=== PATIENT | female | born 1975 | race Caucasian/White ===

== ENCOUNTER 2024-12-04 22:05 | Observation (INO) | payer BC ==
[2024-12-04] MEDS: LORazepam 2 MG/ML INJ IV STA (22:21)
[2024-12-04] MEDS: SODIUM CHLORIDE 0.9% 1,000 ML IV STA (22:21)
[2024-12-04 22:23] LABS: Basophils % (A) 1 %; Eosinophils # (A) 0.2 k/uL (0-0.7); Eosinophils % (A) 3 %; HCT 37.6 % (34.0-46.0); HGB 12.6 gm/dL (11.4-16.0); Lymphocytes # (A) 2.4 k/uL (1.0-4.8); Lymphocytes % (A) 34 %; MCHC 33.4 g/dL (31.0-37.0); MCV 92.8 fL (80.0-100.0); Mean Platelet Volume 7.4; Monocytes # (A) 0.4 k/uL (0-1.0); Monocytes % (A) 5 %; Neutrophils # (A) 3.7 k/uL (1.3-7.7); Neutrophils % (A) 54 %; Platelet Count 388 k/uL (150-450); RBC 4.05 m/uL (3.80-5.40); RDW 12.6 % (11.5-15.5); WBC 6.9 k/uL (3.8-10.6)
--- NOTE | 2024-12-04 22:31 | ED ---
General Adult HPI - General Chief complaint: Chest Pain Stated complaint: Chest Pain Time Seen by Provider: 12/04/24 22:13 Source: patient, EMS, RN notes reviewed, old records reviewed Mode of arrival: EMS Limitations: no limitations - History of Present Illness Initial comments: Patient is a 49-year-old female presents emergency department complaint of chest pain. States it started approximately an hour prior to arrival. Has no cardiac history. Does have family history of cardiac issues at older age. States that started suddenly while she was sitting. Endorses substernal and left-sided chest pain that radiates to the left shoulder into the left jaw. Patient states the pain comes and goes and currently a 7 out of 10. Denies any diaphoretic episodes. Denies nausea or vomiting. Does have a history of anxiety and panic attacks. States that she seems like every time her heart rate increases symptoms return. Unknown if this is a panic attack or cardiac in nature.No known palliative or provocative factors for the chest pain. Received 324 mg of aspirin prior to arrival.Patient states this has happened previously many years ago and she had a full cardiac workup with no clear etiology for symptoms other than anxiety panic attack. - Related Data Allergies Allergy/AdvReac Type Severity Reaction Status Date / Time fluconazole Allergy Swelling Verified 12/04/24 22:15 codeine AdvReac Swelling Verified 12/04/24 22:15 Review of Systems ROS Statement: Those systems with pertinent positive or pertinent negative responses have been documented in the HPI. Review of Systems: CONST: Denies fever EYES: Denies blurry vision ENT: Denies nasal congestion C/V: Endorses chest pain RESP: Denies shortness of breath GI: Denies abdominal pain : Denies dysuria SKIN: Denies rash. MSK: Denies joint pain. NEURO: Denies headache ROS Other: All systems not noted in ROS Statement are negative. Past Medical History Past Medical History: No Reported History History of Any Multi-Drug Resistant Organisms: None Reported Past Psychological History: Anxiety Smoking Status: Former smoker Past Alcohol Use History: Occasional, Rare Past Drug Use History: Marijuana General Exam - General Exam Comments Initial Comments: General: Extremely anxious. HEAD: Normal with no signs of head trauma. EYES: PERRLA, EOMI, conjunctiva normal, no discharge. ENT: Hearing grossly intact, normal oropharynx. RESPIRATORY: Clear breath sounds bilaterally. No wheezes, rales, or rhonchi. C/V: Tachycardic with regular rhythm. S1 and S2 auscultated, no edema, tawanna pheral pulses 2+ and intact throughout ABD: Abd is soft, nontender, nondistended EXT: Normal range of motion, no obvious deformity SKIN: No rashes or lesions observed on exposed skin. NEURO: Alert and oriented x 4. Limitations: no limitations Course Vital Signs 12/04/24 12/04/24 12/04/24 22:07 22:29 23:17 Temperature 98.4 F Pulse Rate 135 H 104 H 104 H Respiratory 18 18 18 Rate Blood Pressure 147/98 133/92 125/85 O2 Sat by Pulse 98 98 97 Oximetry 12/05/24 01:10 Temperature Pulse Rate 89 Respiratory 18 Rate Blood Pressure 106/74 O2 Sat by Pulse 97 Oximetry Medical Decision Making - Medical Decision Making Was pt. sent in by a medical professional or institution (, PA, OCCUPATIONAL HEALTH PHYSICIAN, urgent care, hospital, or usp...) When possible be specific @ -No Did you speak to anyone other than the patient for history (EMS, parent, family, police, friend...)? What history was obtained from this source @ -No Did you review nursing and triage notes (agree or disagree)? Why? @ -I reviewed and agree with nursing and triage notes Were old charts reviewed (outside hosp., previous admission, EMS record, old EKG, old radiological studies, urgent care reports/EKG's, usp records)? Report findings @ -No old charts were reviewed Differential Diagnosis (chest pain, altered mental status, abdominal pain women, abdominal pain men, vaginal bleeding, weakness, fever, dyspnea, syncope, headach e, dizziness, GI bleed, back pain, seizure, CVA, palpatations, mental health, musculoskeletal)? @ -Differential Chest Pain: Stable Angina, Unstable Angina, STEMI, NSTEMI Aortic Dissection, Pneumothorax, Musculoskeletal, Esophageal Spasm GERD, Cholecystitis, Pancreatitis, Zoster, this is not meant to be an all-inclusive list. EKG interpreted by me (3pts min.). @ -As above X-rays interpreted by me (1pt min.). @ -X-ray reveals no obvious acute cardiopulmonary process. CT interpreted by me (1pt min.). @ -None done U/S interpreted by me (1pt. min.). @ -None done What testing was considered but not performed or refused? (CT, X-rays, U/S, labs)? Why? @ -None What meds were considered but not given or refused? Why? @ -None Did you discuss the management of the patient with other professionals (professionals i.e. , PA, OCCUPATIONAL HEALTH PHYSICIAN, lab, RT, psych nurse, social service assistant, sheet writer, teacher, chief financial officer, case maker)? Give summary @ -I spoke with the admitting provider, Celine of [facility] who accepted the admission. Was smoking cessation discussed for >3mins.? @ -No Was critical care preformed (if so, how long)? @ -No Were there social determinants of health that impacted care today? How? (Homelessness, low income, unemployed, alcoholism, drug addiction, transportation, low edu. Level, literacy, decrease access to med. care, [facility], rehab)? @ -No Was there de-escalation of care discussed even if they declined (Discuss DNR or withdrawal of care, Hospice)? DNR status @ -No What co-morbidities impacted this encounter? (DM, HTN, Smoking, COPD, CAD, Cancer, CVA, ARF, Chemo, Hep., AIDS, mental health diagnosis, sleep apnea, morbid obesity)? @ -Anxiety, panic attacks Was patient admitted / discharged? Hospital course, mention meds given and route, prescriptions, significant lab abnormalities, going to OR and other pertinent info. @ -Patient presents emergency department with chest pain. Does have a history of anxiety and panic attacks as well and this could be a factor in her current symptoms. However we will obtain cardiac workup. She already received 3 2024 mg of aspirin. We will provide her with a 1 L fluid bolus. We discussed nitroglycerin tablets and asked versus Ativan, and patient would like to try Ativan prior to any nitro administered. Therefore patient will be given a dose of IV Ativan and reassessed. She was in agreement this plan. Vitals currently remarkable for sinus tachycardia but otherwise within acceptable limits. EKG shows no signs of acute ischemia. Shows sinus tachycardia. No prior EKG for comparison.Repeat EKG reveals no obvious dynamic changes. Ativan improved patient's anxiety as well as heart rate. States she is still having some of the same pain. We will attempt nitro tablets at this time and she was in agreement this plan. Patient is chest pain did not respond to nitroglycerin. Her discomfort seems to be jumping around. Sometimes it is located in the left chest, sometimes in left shoulder, sometimes in the left neck. Is not consistent, waxes and wanes, with no known palliative or provocative factors. Currently states it is primarily in the left shoulder. Patient's workup including troponin is unremarkable. Tr oponin is undetectable. Repeat EKG showed no signs of acute ischemia. Chest x- ray unremarkable. I discussed results with the patient. We will attempt morphine and Toradol for the pain but I do recommend admission for cardiac evaluation. She was in agreement this plan. She is resting more comfortably at this time and still appears anxious.Morphine improved the patient's symptoms. I spoke with the admitting provider, Celine of [facility] who accepted the admission. Cardiology consulted. Echo ordered. Will trend the troponin. Undiagnosed new problem with uncertain prognosis? @ -No Drug Therapy requiring intensive monitoring for toxicity (Heparin, Nitro, Insulin, Cardizem)? @ -No Were any procedures done? @ -No Diagnosis/symptom? @ -Chest pain, anxiety Acute, or Chronic, or Acute on Chronic? @ -Acute Uncomplicated (without systemic symptoms) or Complicated (systemic symptoms)? @ -Complicated Side effects of treatment? @ -None Exacerbation, Progression, or Severe Exacerbation] @ -No Poses a threat to life or bodily function? @ -Possibly, yes - Lab Data Result diagrams: 12/04/24 22:11 12/04/24 22:11 Lab Results 12/04/24 12/04/24 12/04/24 Range/Units 22:11 22:11 22:11 WBC 6.9 (3.8-10.6) k/uL RBC 4.05 (3.80-5.40) m/uL Hgb 12.6 (11.4-16.0) gm/dL Hct 37.6 (34.0-46.0) % MCV 92.8 (80.0-100.0) fL MCH 31.0 (25.0-35.0) pg MCHC 33.4 (31.0-37.0) g/dL RDW 12.6 (11.5-15.5) % Plt Count 388 (150-450) k/uL MPV 7.4 Neutrophils % 54 % Lymphocytes % 34 % Monocytes % 5 % Eosinophils % 3 % Basophils % 1 % Neutrophils # 3.7 (1.3-7.7) k/uL Lymphocytes # 2.4 (1.0-4.8) k/uL Monocytes # 0.4 (0-1.0) k/uL Eosinophils # 0.2 (0-0.7) k/uL Basophils # 0.0 (0-0.2) k/uL PT 10.5 (10.0-12.5) sec INR 0.9 (<1.2) APTT 24.2 (22.0-30.0) sec Sodium 139 (137-145) mmol/L Potassium 3.5 (3.5-5.1) mmol/L Chloride 107 (98-107) mmol/L Carbon Dioxide 22 (22-30) mmol/L Anion Gap 10 mmol/L BUN 19 H (7-17) mg/dL Creatinine 0.61 (0.52-1.04) mg/dL Est GFR (CKD-EPI)AfAm >90 (>60 ml/min/1.73 sqM) Est GFR (CKD-EPI)NonAf >90 (>60 ml/min/1.73 sqM) Glucose 131 H (74-99) mg/dL Calcium 9.8 (8.4-10.2) mg/dL Magnesium 2.0 (1.6-2.3) mg/dL Total Bilirubin 0.3 (0.2-1.3) mg/dL AST 15 (14-36) U/L ALT 13 (4-34) U/L Alkaline Phosphatase 51 (38-126) U/L Troponin I (0.000-0.034) ng/mL Total Protein 7.0 (6.3-8.2) g/dL Albumin 4.6 (3.5-5.0) g/dL 12/04/24 Range/Units 22:11 WBC (3.8-10.6) k/uL RBC (3.80-5.40) m/uL Hgb (11.4-16.0) gm/dL Hct (34.0-46.0) % MCV (80.0-100.0) fL MCH (25.0-35.0) pg MCHC (31.0-37.0) g/dL RDW (11.5-15.5) % Plt Count (150-450) k/uL MPV Neutrophils % % Lymphocytes % % Monocytes % % Eosinophils % % Basophils % % Neutrophils # (1.3-7.7) k/uL Lymphocytes # (1.0-4.8) k/uL Monocytes # (0-1.0) k/uL Eosinophils # (0-0.7) k/uL Basophils # (0-0.2) k/uL PT (10.0-12.5) sec INR (<1.2) APTT (22.0-30.0) sec Sodium (137-145) mmol/L Potassium (3.5-5.1) mmol/L Chloride (98-107) mmol/L Carbon Dioxide (22-30) mmol/L Anion Gap mmol/L BUN (7-17) mg/dL Creatinine (0.52-1.04) mg/dL Est GFR (CKD-EPI)AfAm (>60 ml/min/1.73 sqM) Est GFR (CKD-EPI)NonAf (>60 ml/min/1.73 sqM) Glucose (74-99) mg/dL Calcium (8.4-10.2) mg/dL Magnesium (1.6-2.3) mg/dL Total Bilirubin (0.2-1.3) mg/dL AST (14-36) U/L ALT (4-34) U/L Alkaline Phosphatase (38-126) U/L Troponin I <0.012 (0.000-0.034) ng/mL Total Protein (6.3-8.2) g/dL Albumin (3.5-5.0) g/dL - EKG Data -: EKG Interpreted by Me EKG Comments: 12-lead Electrocardiogram Interpretation Note EKG was reviewed and interpreted by myself. 12-lead ECG performed at 2209 is interpreted by me as revealing tachycardia at a rate of 129 beats per minute. [place] is normal. TN interval is 168 ms, QRS duration is 100 ms, QTc is 410 ms.. There were no ST or T wave abnormalities to suggest myocardial ischemia or injury. R wave progression across the precordium was satisfactory. By my interpretation this EKG is non-diagnostic for acute ischemia. 12-lead Electrocardiogram Interpretation Note EKG was reviewed and interpreted by myself. 12-lead ECG performed at 2240 is interpreted by me as revealing tachycardia at a rate of 105 beats per minute. [place] is normal. TN interval is 160 ms, QRS durations 106 ms, QTc is 400 ms.. There were no ST or T wave abnormalities to suggest myocardial ischemia or i njury. R wave progression across the precordium was satisfactory. By my interpretation this EKG is non-diagnostic for acute ischemia. No dynamic changes when compared with EKG from earlier this evening. 12-lead Electrocardiogram Interpretation Note EKG was reviewed and interpreted by myself. 12-lead ECG performed at 2359 is interpreted by me as revealing normal sinus rhythm at a rate of 94 beats per minute. [place] is normal. TN interval is 170 ms, QRS durations 96 ms, QTc is 395 ms.. There were no ST or T wave abnormalities to suggest myocardial ischemia or injury. R wave progression across the precordium was satisfactory. By my interpretation this EKG is non-diagnostic for acute ischemia. No dynamic changes when compared with previous EKGs from today. Disposition Clinical Impression: Chest pain, Anxiety Disposition: ADMITTED IP TO THIS HOSP Condition: Stable Time of Disposition: 23:25
[2024-12-04 22:32] LABS: INR 0.9 (<1.2); Partial Thromboplastin Time 24.2 sec (22.0-30.0); Prothrombin Time 10.5 sec (10.0-12.5)
[2024-12-04 22:39] LABS: ALT 13 U/L (4-34); AST 15 U/L (14-36); African American GFR (CKD) >90 (>60 ml/min/1.73 sqM); Albumin 4.6 g/dL (3.5-5.0); Alkaline Phosphatase 51 U/L (38-126); Anion Gap 10 mmol/L; Blood Urea Nitrogen 19 mg/dL (7-17); Calcium 9.8 mg/dL (8.4-10.2); Carbon Dioxide 22 mmol/L (22-30); Chloride 107 mmol/L (98-107); Glucose 131 mg/dL (74-99); Non-African American GFR(CKD) >90 (>60 ml/min/1.73 sqM); Potassium 3.5 mmol/L (3.5-5.1); Sodium 139 mmol/L (137-145); Total Bilirubin 0.3 mg/dL (0.2-1.3)
[2024-12-04] MEDS: NITROGLYCERIN SL TABS 0.4 MG TAB SUBLINGUAL STA ×2 (22:40→23:19)
[2024-12-04] MEDS ORDERED: ONDANSETRON 4 MG/2 ML VIAL IVP PRN (23:39)
[2024-12-04] MEDS ORDERED: ACETAMINOPHEN TAB 325 MG TAB PO PRN (23:39)
[2024-12-04] MEDS ORDERED: NALOXONE 0.4 MG/ML 1 ML VIAL IV PRN (23:39)
[2024-12-04] MEDS ORDERED: MORPHINE SULFATE 2 MG/ML SYRINGE IVP PRN (23:39)
[2024-12-04] MEDS: KETOROLAC 15 MG/ML 1 ML VIAL IVP STA (23:46)
[2024-12-04] MEDS: MORPHINE SULFATE 2 MG/ML SYRINGE IVP STA (23:47)
[2024-12-04] MEDS: SODIUM CHLORIDE 0.9% 1,000 ML IV SCH (23:48)
[2024-12-05] MEDS: HEPARIN SODIUM,PORCINE 5,000 UNIT/ML 1 ML VIAL SQ SCH (00:03)
--- NOTE | 2024-12-05 00:07 | XR ---
EXAM: XR Chest, 2 Views CLINICAL HISTORY: ITS.REASON XR Reason: Chest Pain TECHNIQUE: Frontal and lateral views of the chest. COMPARISON: None FINDINGS: Hardware: None. Lungs/pleura: Normal. No focal consolidation. No pleural effusion or pneumothorax. Heart/mediastinum: Normal. No cardiomegaly. Soft tissues: Unremarkable. Bones: No acute fracture. Upper abdomen: Normal. IMPRESSION: No acute disease identified.
[2024-12-05] MEDS: MORPHINE SULFATE 4 MG/ML SYRINGE IVP STA (01:19)
[2024-12-05 04:32] LABS: Basophils % (A) 0 %; Eosinophils # (A) 0.1 k/uL (0-0.7); Eosinophils % (A) 2 %; HGB 11.3 gm/dL (11.4-16.0); Lymphocytes # (A) 1.4 k/uL (1.0-4.8); Lymphocytes % (A) 28 %; MCH 31.3 pg (25.0-35.0); MCHC 33.3 g/dL (31.0-37.0); MCV 94.1 fL (80.0-100.0); Mean Platelet Volume 8.1; Monocytes # (A) 0.3 k/uL (0-1.0); Monocytes % (A) 5 %; Neutrophils # (A) 3.2 k/uL (1.3-7.7); Neutrophils % (A) 62 %; Platelet Count 322 k/uL (150-450); RBC 3.61 m/uL (3.80-5.40); RDW 12.6 % (11.5-15.5); WBC 5.1 k/uL (3.8-10.6)
[2024-12-05 05:38] LABS: ALT 11 U/L (4-34); AST 12 U/L (14-36); African American GFR (CKD) >90 (>60 ml/min/1.73 sqM); Albumin 3.5 g/dL (3.5-5.0); Alkaline Phosphatase 42 U/L (38-126); Anion Gap 6 mmol/L; Blood Urea Nitrogen 18 mg/dL (7-17); Calcium 8.4 mg/dL (8.4-10.2); Carbon Dioxide 22 mmol/L (22-30); Chloride 111 mmol/L (98-107); Glucose 98 mg/dL (74-99); Non-African American GFR(CKD) >90 (>60 ml/min/1.73 sqM); Potassium 4.3 mmol/L (3.5-5.1); Sodium 139 mmol/L (137-145); Total Bilirubin 0.3 mg/dL (0.2-1.3); Total Protein 5.6 g/dL (6.3-8.2)
[2024-12-05] MEDS: MORPHINE SULFATE 4 MG/ML SYRINGE IVP PRN (06:36)
[2024-12-05] MEDS ORDERED: HYDROcodone/APAP 10-325MG 1 EACH TAB PO PRN (09:39)
[2024-12-05] MEDS: PANTOPRAZOLE 40 MG TABLET PO SCH (10:14)
--- NOTE | 2024-12-05 10:37 | P.CRDCN ---
History of Present Illness Consult date: 12/05/24 Consult reason: chest pain History of present illness: This is a 49-year-old female with no significant past medical history. We have been asked to evaluate the patient for chest pain. Patient states that she was watching a movie last evening and developed left shoulder pain and that kept going and seems to be getting worse and then her heart started racing. She initially ignored it and thought her symptoms would go away. The pain in her shoulder was then going from the posterior shoulder to the anterior and up into the left side of her neck and jaw. Her heart rate was 140 to 150 bpm. She checked her blood pressure at home and it was 165/110. She states she normally has a very good blood pressure. She denies alcohol use, smoking, vaping, caffeine use. She denies any recent infectious process. Patient does give history that when she was in 2014 she developed palpitations and PVCs. She did have a workup at that time that included an echocardiogram which was normal. She states she normally does have occasional PVCs. She also had a workup in 2011 which time she presented to [facility] with a panic attack and le ft arm pain. She had a limited workup at that time according to the patient but everything was negative. Blood pressure 103/70, heart rate 82, pulse ox 97% on room air. Patient is seen today in the emergency center waiting for a bed on the observation unit. Patient is status post IV morphine x 2, Ativan, Toradol and Nitrostat. Discussed plan for stress test and patient states she did not sleep well last night but she will give a stress test a try. -EKG: #1 sinus tachycardia 129 bpm, nonspecific changes, #2 sinus tachycardia 105 bpm, #3 sinus rhythm 94 bpm -Chest x-ray: No acute process -Laboratory studies: Hemoglobin 11.3. Sodium 139, potassium 4.3, BUN 18 creatinine 0.51. Troponin negative x 3. -Home cardiac medications: None Review Of Systems: At the time of my exam: CONSTITUTIONAL: Denies fever or chills. HEENT: Denies blurred vision, vision changes, or eye pain. Denies hemoptysis CARDIOVASCULAR: Denies chest pain. Denies orthopnea. Denies PND. Denies palpitations RESPIRATORY: Denies shortness of breath. GASTROINTESTINAL: Denies abdominal pain. Denies nausea or vomiting. HEMATOLOGIC: Denies bleeding disorders. GENITOURINARY: Denies any blood in urine. SKIN: Denies puritis. Denies rash. Physical examination: Gen: This is a 49-year-old female in no acute distress VS: reviewed HEENT: Head is atraumatic, normocephalic. Pupils equal, round. Sclerae is anicteric. NECK: Supple. No JVD. LUNGS: Clear to auscultation. No wheezes or rhonchi. No intercostal retraction s. HEART: Regular rate and rhythm. No murmur. ABDOMEN: Soft No tenderness. EXTREMITIES: No pedal edema. No calf tenderness. NEUROLOGICAL: Patient is awake, alert and oriented x3. Assessment: Atypical chest pain, acute coronary syndrome ruled out High blood pressure reading Plan: Schedule patient for stress echocardiogram today Obtain 2-D echocardiogram and Doppler study to assess cardiac structure and function If stress test is unremarkable, patient is cleared for discharge from cardiology perspective and may follow-up in the office with Dr. Corona in 1 to 2 weeks. Thank you kindly for this consultation. Nurse practitioner note has been reviewed, I agree with documented findings and plan of care. Patient was seen and examined. Past Medical History Past Medical History: No Reported History History of Any Multi-Drug Resistant Organisms: None Reported Past Psychological History: Anxiety Smoking Status: Former smoker Past Alcohol Use History: Occasional, Rare Past Drug Use History: Marijuana Medications and Allergies Home Medications Medication Instructions Recorded Confirmed Type HYDROcodone/APAP 10-325MG [[place] 1 tab PO Q6HR PRN 12/05/24 12/05/24 History 10-325] Pantoprazole [Protonix] 40 mg PO DAILY PRN 12/05/24 12/05/24 History Allergies Allergy/AdvReac Type Severity Reaction Status Date / Time codeine Allergy Swelling Verified 12/05/24 07:04 fluconazole Allergy Swelling Verified 12/05/24 07:04 Physical Exam Vitals: Vital Signs Temp Pulse Resp BP Pulse Ox 12/05/24 08:02 98.0 F 82 17 103/70 97 12/05/24 06:28 78 18 120/82 99 12/05/24 05:58 68 16 111/65 97 12/05/24 03:30 77 16 107/72 96 12/05/24 02:34 85 16 109/62 86 L 12/05/24 01:10 89 18 106/74 97 12/04/24 23:17 104 H 18 125/85 97 12/04/24 22:29 104 H 18 133/92 98 12/04/24 22:07 98.4 F 135 H 18 147/98 98 Intake and Output 12/04/24 12/05/24 12/05/24 22:59 06:59 14:59 Other: Weight 56.699 kg Results 12/05/24 03:55 12/05/24 03:55 Cardiac Enzymes 12/04/24 12/04/24 12/05/24 Range/Units 22:11 22:11 00:08 AST 15 (14-36) U/L Troponin I <0.012 <0.012 (0.000-0.034) ng/mL 12/05/24 12/05/24 Range/Units 03:55 03:55 AST 12 L (14-36) U/L Troponin I <0.012 (0.000-0.034) ng/mL Coagulation 12/04/24 Range/Units 22:11 PT 10.5 (10.0-12.5) sec APTT 24.2 (22.0-30.0) sec CBC 12/04/24 12/05/24 Range/Units 22:11 03:55 WBC 6.9 5.1 (3.8-10.6) k/uL RBC 4.05 3.61 L (3.80-5.40) m/uL Hgb 12.6 11.3 L (11.4-16.0) gm/dL Hct 37.6 34.0 (34.0-46.0) % Plt Count 388 322 (150-450) k/uL Comprehensive Metabolic Panel 12/04/24 12/05/24 Range/Units 22:11 03:55 Sodium 139 139 (137-145) mmol/L Potassium 3.5 4.3 (3.5-5.1) mmol/L Chloride 107 111 H (98-107) mmol/L Carbon Dioxide 22 22 (22-30) mmol/L BUN 19 H 18 H (7-17) mg/dL Creatinine 0.61 0.51 L (0.52-1.04) mg/dL Glucose 131 H 98 (74-99) mg/dL Calcium 9.8 8.4 (8.4-10.2) mg/dL AST 15 12 L (14-36) U/L ALT 13 11 (4-34) U/L Alkaline Phosphatase 51 42 (38-126) U/L Total Protein 7.0 5.6 L (6.3-8.2) g/dL Albumin 4.6 3.5 (3.5-5.0) g/dL Current Medications Generic Name Dose Route Start Last Admin Trade Name Freq PRN Reason Stop Dose Admin Acetaminophen 650 mg 12/04/24 23:39 Acetaminophen Tab 325 Mg Tab PO Q6HR PRN Mild Pain or Fever > 100.5 Heparin Sodium (Porcine) 5,000 unit 12/05/24 00:00 12/05/24 00:03 Heparin Sodium,Porcine 5,000 Unit/Ml 1 Ml Vial SQ Not Given Q8HR MARCO Sodium Chloride 1,000 mls @ 75 mls/hr 12/04/24 23:45 12/04/24 23:48 Saline 0.9% IV 75 mls/hr .[id number] MARCO Administration Morphine Sulfate 4 mg 12/05/24 01:16 12/05/24 06:36 Morphine Sulfate 4 Mg/Ml Syringe IVP 4 mg Q4HR PRN Administration Pain Naloxone HCl 0.2 mg 12/04/24 23:39 Naloxone 0.4 Mg/Ml 1 Ml Vial IV Q2M PRN Opioid Reversal Ondansetron HCl 4 mg 12/04/24 23:39 Ondansetron 4 Mg/2 Ml Vial IVP Q8HR PRN Nausea And Vomiting Intake and Output 12/04/24 12/05/24 12/05/24 22:59 06:59 14:59 Other: Weight 56.699 kg 12/05/24 03:55 12/05/24 03:55
--- NOTE | 2024-12-05 11:55 | P.HPIM ---
History of Present Illness H&P Date: 12/05/24 This is a 49-year-old female with medical history of thoracic outlet syndrome/TMJ/herniated disks presents to the ER with complaints of left shoulder pain with radiation into the chest, jaw and left arm. Patient states that the pain began yesterday evening while watching a movie she was sitting on the couch when the pain came on it was noted to be sharp burning like sensation in the posterior scapula began to radiate into the anterior chest wall left jaw and down into the left arm. She noticed her heart rate to be racing at that time also. She thought may be symptoms were related to the thoracic outlet syndrome. However the pain kept worsening. Patient was concerned states that she checked her heart rate and it was elevated in the 140s to 150s. BP was 165/110. Patient was brought to the hospital by EMS. was given sublingual nitro and IV morphine without improvement in her symptoms. Was also given IV ativan, and toradol. She reports no associated shortness of breath diaphoresis dizziness or lightheadedness. No recent febrile illness no cough. Denies any abdominal pain. Patient reports no alcohol illicit substances and is a non-smoker. She is maintained on [place] as needed for history of for herniated disks in her back. Patient is still reporting chest discomfort at this time and also in the posterior back. Nothing is reproducible. She has full range of motion to the left arm, no focal tenderness along the cervical spine. Suspicion is low for any type of cervical radiculopathy, although not entirely ruled out. Patient was admitted to the hospital with cardiac consultation. Initial EKG reveals sinus tachycardia hear rate of 129. No specific ST or T wave changes noted. Chest xray negative for acute disease. Blood work is essentially unremarkable, Glucose 131 on admission; BUN of 19, creatinine of 0.61. AST/ALT and Alk phos normal. Troponin levels have been negative x 3. Patient will be going for stress echo today. REVIEW OF SYSTEMS: CONSTITUTIONAL: No fever, no malaise, no fatigue. HEENT: No recent visual problems or hearing problems. Denied any sore throat. CARDIOVASCULAR: Reports chest pain, orthopnea, PND, no palpitations, no syncope. PULMONARY: No shortness of breath, no cough, no hemoptysis. GASTROINTESTINAL: No diarrhea, no nausea, no vomiting, no abdominal pain. NEUROLOGICAL: No headaches, no weakness, no numbness. HEMATOLOGICAL: Denies any bleeding or petechiae. GENITOURINARY: Denies any burning micturition, frequency, or urgency. MUSCULOSKELETAL/RHEUMATOLOGICAL: Denies any joint pain, swelling, or any muscle pain. ENDOCRINE: Denies any polyuria or polydipsia. The rest of the 14-point review of systems is negative. PHYSICAL EXAMINATION: GENERAL: The patient is alert and oriented x3, not in any acute distress. Well developed, well nourished. HEENT: Pupils are round and equally reacting to light. EOMI. No scleral icterus. No conjunctival pallor. Normocephalic, atraumatic. No pharyngeal erythema. No thyromegaly. CARDIOVASCULAR: S1 and S2 present. No murmurs, rubs, or gallops. PULMONARY: Chest is clear to auscultation, no wheezing or crackles. ABDOMEN: Soft, nontender, nondistended, normoactive bowel sounds. No palpable organomegaly. MUSCULOSKELETAL: No joint swelling or deformity. EXTREMITIES: No cyanosis, clubbing, or pedal edema. NEUROLOGICAL: Gross neurological examination did not reveal any focal deficits. SKIN: No rashes. Assessment and Plan Acute chest pain, atypical rule out ACS patient will be going for cardiac stress testing today Sinus tachycardia and elevated blood pressures Hx of thoracic outlet syndrome Hx of TMJ Hx of herniated discs in back maintained on norco as needed under the care of her PCP GI prophylaxis on protonix DVT prophylaxis on subcu heparin Anxiety Former smoker Full Code Plan [facility] has evaluated the patient Scheduled to undergo stress echo today and can discharge home afterwards if negative Monitor electrolytes and renal function Continue cardiac telemetry. The impression and plan of care has been dictated by Rhonda Alejandra, Nurse Practitioner as directed. Dr. Olvin MD I have performed a history and physical examination and medical decision making of this patient, discussed the same with the dictator, and agree with the dictators assessment and plan as written, documented as a scribe. Based on total visit time, I have performed more than 50% of this visit. Past Medical History Past Medical History: No Reported History History of Any Multi-Drug Resistant Organisms: None Reported Past Psychological History: Anxiety Smoking Status: Former smoker Past Alcohol Use History: Occasional, Rare Past Drug Use History: Marijuana Medications and Allergies Home Medications Medication Instructions Recorded Confirmed Type HYDROcodone/APAP 10-325MG [[place] 1 tab PO Q6HR PRN 12/05/24 12/05/24 History 10-325] Pantoprazole [Protonix] 40 mg PO DAILY PRN 12/05/24 12/05/24 History Allergies Allergy/AdvReac Type Severity Reaction Status Date / Time codeine Allergy Swelling Verified 12/05/24 07:04 fluconazole Allergy Swelling Verified 12/05/24 07:04 Physical Exam Vitals: Vital Signs Temp Pulse Resp BP Pulse Ox 12/05/24 08:02 98.0 F 82 17 103/70 97 12/05/24 06:28 78 18 120/82 99 12/05/24 05:58 68 16 111/65 97 12/05/24 03:30 77 16 107/72 96 12/05/24 02:34 85 16 109/62 86 L 12/05/24 01:10 89 18 106/74 97 12/04/24 23:17 104 H 18 125/85 97 12/04/24 22:29 104 H 18 133/92 98 12/04/24 22:07 98.4 F 135 H 18 147/98 98 Intake and Output 12/04/24 12/05/24 12/05/24 22:59 06:59 14:59 Other: Weight 56.699 kg Results CBC & Chem 7: 12/05/24 03:55 12/05/24 03:55 Labs: Abnormal Lab Results - Last 24 Hours (Table) 12/04/24 12/05/24 12/05/24 Range/Units 22:11 03:55 03:55 RBC 3.61 L (3.80-5.40) m/uL Hgb 11.3 L (11.4-16.0) gm/dL Chloride 111 H (98-107) mmol/L BUN 19 H 18 H (7-17) mg/dL Creatinine 0.51 L (0.52-1.04) mg/dL Glucose 131 H (74-99) mg/dL AST 12 L (14-36) U/L Total Protein 5.6 L (6.3-8.2) g/dL Assessment and Plan Time with Patient: Less than 30
--- NOTE | 2024-12-05 13:11 | P.DS ---
Providers Date of admission: 12/04/24 23:41 Attending physician: Devora Lala Consults: 12/04/24 23:39 Consult Physician Routine Consulting Provider: [facility] Consult Reason/Comments: chest pain Do you want consulting provider notified?: Yes Primary care physician: Jay Rondon [facility] Course: Patient is leaving against medical advice due to family issues and unable to stay for the stress test. Discussed with cardiology and stress echo has been cancelled. Did discuss with patient if she leaves AMA would recommend to follow up with Dr. Corona in the office for further outpatient work up. 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 This is a 49-year-old female with medical history of thoracic outlet syndrome/TMJ/herniated disks presents to the ER with complaints of left shoulder pain with radiation into the chest, jaw and left arm. Patient states that the pain began yesterday evening while watching a movie she was sitting on the couch when the pain came on it was noted to be sharp burning like sensation in the posterior scapula began to radiate into the anterior chest wall left jaw and down into the left arm. She noticed her heart rate to be racing at that time also. She thought may be symptoms were related to the thoracic outlet syndrome. However the pain kept worsening. Patient was concerned states that she checked her heart rate and it was elevated in the 140s to 150s. BP was 165/110. Patient was brought to the hospital by EMS. was given sublingual nitro and IV morphine without improvement in her symptoms. Was also given IV ativan, and toradol. She reports no associated shortness of breath diaphoresis dizziness or lightheadedness. No recent febrile illness no cough. Denies any abdominal p ain. Patient reports no alcohol illicit substances and is a non-smoker. She is maintained on [place] as needed for history of for herniated disks in her back. Patient is still reporting chest discomfort at this time and also in the posterior back. Nothing is reproducible. She has full range of motion to the left arm, no focal tenderness along the cervical spine. Suspicion is low for any type of cervical radiculopathy, although not entirely ruled out. Patient was admitted to the hospital with cardiac consultation. Initial EKG reveals sinus tachycardia hear rate of 129. No specific ST or T wave changes noted. Chest xray negative for acute disease. Blood work is essentially unremarkable, Glucose 131 on admission; BUN of 19, creatinine of 0.61. AST/ALT and Alk phos normal. Troponin levels have been negative x 3. Patient will be going for stress echo today. REVIEW OF SYSTEMS: CONSTITUTIONAL: No fever, no malaise, no fatigue. HEENT: No recent visual problems or hearing problems. Denied any sore throat. CARDIOVASCULAR: Reports chest pain, orthopnea, PND, no palpitations, no syncope. PULMONARY: No shortness of breath, no cough, no hemoptysis. GASTROINTESTINAL: No diarrhea, no nausea, no vomiting, no abdominal pain. NEUROLOGICAL: No headaches, no weakness, no numbness. HEMATOLOGICAL: Denies any bleeding or petechiae. GENITOURINARY: Denies any burning micturition, frequency, or urgency. MUSCULOSKELETAL/RHEUMATOLOGICAL: Denies any joint pain, swelling, or any muscle pain. ENDOCRINE: Denies any polyuria or polydipsia. The rest of the 14-point review of systems is negative. PHYSICAL EXAMINATION: GENERAL: The patient is alert and oriented x3, not in any acute distress. Well developed, well nourished. HEENT: Pupils are round and equally reacting to light. EOMI. No scleral icterus. No conjunctival pallor. Normocephalic, atraumatic. No pharyngeal erythema. No thyromegaly. CARDIOVASCULAR: S1 and S2 present. No murmurs, rubs, or gallops. PULMONARY: Chest is clear to auscultation, no wheezing or crackles. ABDOMEN: Soft, nontender, nondistended, normoactive bowel sounds. No palpable organomegaly. MUSCULOSKELETAL: No joint swelling or deformity. EXTREMITIES: No cyanosis, clubbing, or pedal edema. NEUROLOGICAL: Gross neurological examination did not reveal any focal deficits. SKIN: No rashes. Assessment and Plan Acute chest pain, atypical rule out ACS patient will be going for cardiac stress testing today Sinus tachycardia and elevated blood pressures Hx of thoracic outlet syndrome Hx of TMJ Hx of herniated discs in back maintained on norco as needed under the care of her PCP GI prophylaxis on protonix DVT prophylaxis on subcu heparin Anxiety Former smoker Full Code Plan [facility] has evaluated the patient Scheduled to undergo stress echo today and can discharge home afterwards if negative Monitor electrolytes and renal function Continue cardiac telemetry. The impression and plan of care has been dictated by Nurse Priscila Howell as directed. Dr. Olvin MD I have performed a history and physical examination and medical decision making of this patient, discussed the same with the dictator, and agree with the dictat ors assessment and plan as written, documented as a scribe. Based on total visit time, I have performed more than 50% of this visit. Plan - Discharge Summary New Discharge Prescriptions: No Action HYDROcodone/APAP 10-325MG [[place] 10-325] 1 tab PO Q6HR PRN PRN Reason: Pain Pantoprazole [Protonix] 40 mg PO DAILY PRN PRN Reason: GERD Discharge Medication List HYDROcodone/APAP 10-325MG [[place] 10-325] 1 tab PO Q6HR PRN 12/05/24 [History] Pantoprazole [Protonix] 40 mg PO DAILY PRN 12/05/24 [History] Follow up Appointment(s)/Referral(s): Jay Rondon DO [Primary Care Provider] - 1-2 days Rogelio Corona MD [Medical Doctor] - 1 Week
[2024-12-05 14:39] VITALS: BP 113/67; PULSE 69; RESP 18; TEMP 98.3
== END 2024-12-05 14:40 | disposition home or self-care (01) ==
LOC: EC 22:05 → 6NMEDSUR 23:41
PROVIDERS: ADMIT Hospitalist; ATTEND Hospitalist
DX: R07.89 Other chest pain (principal); R07.2 Precordial pain; R03.0 Elevated blood-pressure reading, without diagnosis of hypertension; R00.0 Tachycardia, unspecified; I49.3 Ventricular premature depolarization; M25.512 Pain in left shoulder; M79.602 Pain in left arm; M54.2 Cervicalgia; M26.609 Unspecified temporomandibular joint disorder, unspecified side; F41.0 Panic disorder [episodic paroxysmal anxiety]; F41.9 Anxiety disorder, unspecified; Z88.3 Allergy status to other anti-infective agents; Z88.5 Allergy status to narcotic agent; Z86.69 Personal history of other diseases of the nervous system and sense organs; Z87.891 Personal history of nicotine dependence; Z82.49 Family history of ischemic heart disease and other diseases of the circulatory system
CPT/HCPCS: 96376; 96374; 96375; 99285; 36415; 93005; 80053 ×2; 83735; 84484 ×2; 85025 ×2; 85610; 85730; 71046; G0378; J2060; J2270 ×2; J1885